=== PATIENT | female | born 1965 | race American Indian/Alaskan Native ===

== ENCOUNTER 2017-08-03 09:10 | Outpatient (CLI) | payer OTHER ==
--- NOTE | 2017-08-03 10:21 | Mammography Report ---
Screening mammogram: The patient has had bilateral breast reduction surgery. Routine views demonstrate mild architectural distortion consistent with prior surgery. No suspicious distortion, mass, or calcification identified. CAD used. Impression: Benign findings. Recommendation: Annual mammogram followup.
== END 2017-08-03 09:11 | disposition home or self-care (01) ==
LOC: SPVWC 09:10
PROVIDERS: ATTEND Family Medicine
DX: Z12.31 Encounter for screening mammogram for malignant neoplasm of breast (principal); Z98.890 Other specified postprocedural states
CPT/HCPCS: 77067; G0202

== ENCOUNTER 2017-09-27 09:52 | Outpatient (CLI) | payer OTHER ==
--- NOTE | 2017-09-27 11:17 | Magnetic Resonance Report ---
MRI OF THE BRAIN WITHOUT CONTRAST: HISTORY: Seizure PROCEDURE: Multiplanar, multisequence MR imaging of the brain without IV contrast was performed. FINDINGS: The brain parenchyma signal intensity and its white interface are within normal limits on all sequences. No evidence for acute ischemia, hemorrhage or mass. No chronic infarct or extra-axial fluid collection. The midline structures are central. The basal cisterns are patent. Normal ventricular size. The orbital cavities and sella turcica demonstrate no abnormality. The visualized paranasal sinuses and mastoid air cells are well aerated. IMPRESSION: Unremarkable non-enhanced MRI of the brain.
== END 2017-09-27 09:53 | disposition home or self-care (01) ==
LOC: MRI 09:52
PROVIDERS: ATTEND Psychiatry & Neurology Neurology
DX: G40.109 Localization-related (focal) (partial) symptomatic epilepsy and epileptic syndromes with simple partial seizures, not intractable, without status epilepticus (principal); R20.2 Paresthesia of skin
CPT/HCPCS: 70551

== ENCOUNTER 2022-04-13 14:15 | Outpatient (CLI) | payer MEDICARE | END 2022-04-13 14:16 | disposition home or self-care (01) | LOC: SPVWC 14:15 | PROVIDERS: ATTEND Physician Assistant | DX: Z12.31 Encounter for screening mammogram for malignant neoplasm of breast (principal) | CPT/HCPCS: 77067 ==